=== PATIENT | female | born 1960 | race Caucasian/White ===

== ENCOUNTER → 2023-06-24 12:26 | Outpatient (REF) | payer MEDICARE, OTHER, SELFPAY ==
[2023-06-24 16:05] LABS: % Basophils 0.6 % (0-2); % Eosinophils 2.2 % (0-6); % Immature Granulocytes 0.3 % (0-0.5); % Lymphocytes 24.9 % (20.5-51.1); % Monocytes 9.3 % (1.7-9.3); % Neutrophils 62.7 % (42.2-75.2); Absolute Basophils 0.1 10^3/uL (0-0.2); Absolute Eosinophils 0.2 10^3/uL (0-0.7); Absolute Lymphocytes 2.4 10^3/uL (1.2-3.4); Absolute Monocytes 0.9 10^3/uL (0.1-0.6); Hematocrit 36.9 % (37.0-47.0); Hemoglobin 12.3 g/dL (12.0-16.0); Mean Corp Hgb Conc. 33.3 g/dL (33.0-37.0); Mean Corpuscular Hgb 25.9 pg (27.0-31.0); Mean Corpuscular Volume 77.7 fL (81.0-99.0); Mean Platelet Volume 9.6 fL (7.4-10.4); Nucleated Red Blood Cells % 0 %; Platelet Count 307 10^3/uL (130-400); Red Blood Cell Count 4.75 10^6/uL (4.20-5.40); Red Cell Dist. Width 13.6 % (11.5-14.5); White Blood Cell Count 9.6 10^3/uL (4.8-10.8)
[2023-06-24 16:21] LABS: ALT (SGPT) 23 U/L (0-35); AST (SGOT) 26 U/L (14-36); Albumin 4.6 g/dl (3.5-5.0); Alkaline Phosphatase 74 U/L (38-126); Blood Urea Nitrogen 14 mg/dl (7-17); Calcium 9.9 mg/dl (8.4-10.2); Carbon Dioxide 25 mmol/L (22-30); Chloride 102 mmol/L (98-107); Glucose 242 mg/dl (70-99); HDL Cholesterol 36 mg/dl; Iron 62 ug/dl (37-170); LDL Cholesterol, Calculated 62 mg/dl; Potassium 3.9 mmol/L (3.5-5.1); Sodium 135 mmol/L (135-145); Total Bilirubin 0.5 mg/dl (0.2-1.3); Total Cholesterol 141 mg/dl (50-199); Total Protein 6.9 g/dl (6.3-8.2); Triglyceride 215 mg/dl (10-149); Very Low Density Lipoprotein 43 mg/dl (0-30); eGFR > 60.00
[2023-06-24 16:28] LABS: Urine Albumin Negative (Neg - Trace); Urine Bilirubin Negative (Negative); Urine Character Clear (Clear); Urine Color Yellow; Urine Glucose 2+ (Negative); Urine Ketone Negative (Negative); Urine Leukocyte Trace (Negative); Urine Nitrite Negative (Negative); Urine Occult Blood Negative (Negative); Urine Specific Gravity 1.015 (<1.030); Urine Urobilinogen Negative (Neg - 1+)
[2023-06-24 16:31] LABS: Percent Saturation 17 % (20-50); Total Iron Binding Capacity 355 ug/dl (265-497)
[2023-06-24 16:38] LABS: Urine Red Blood Cell None Seen /HPF (0-2)
[2023-06-24 16:58] LABS: TSH Reflex To Free T4 1.32 uIU/ml (0.47-4.68)
[2023-06-24 17:01] LABS: Ferritin 31.3 ng/ml (11.1-264.0)
== END ==
LOC: HWLAB 12:26
PROVIDERS: ATTENDING PHYSICIAN Internal Medicine
DX: I10 Essential (primary) hypertension (principal); E11.9 Type 2 diabetes mellitus without complications; Z79.4 Long term (current) use of insulin; Z13.820 Encounter for screening for osteoporosis; D50.8 Other iron deficiency anemias; R35.0 Frequency of micturition; Z00.00 Encounter for general adult medical examination without abnormal findings; E11.65 Type 2 diabetes mellitus with hyperglycemia
CPT/HCPCS: 36415; 80053; 80061; 81003; 81015; 82728; 83036; 83540; 83550; 84443; 85025

== ENCOUNTER → 2023-07-02 14:47 | Outpatient (REF) | payer MEDICARE, OTHER, SELFPAY | LOC: HWRAD 14:47 | PROVIDERS: ATTENDING PHYSICIAN Internal Medicine | DX: Z12.31 Encounter for screening mammogram for malignant neoplasm of breast (principal); Z13.820 Encounter for screening for osteoporosis; Z78.0 Asymptomatic menopausal state | CPT/HCPCS: 77063; 77067; 77080 ==

== ENCOUNTER → 2023-08-12 11:49 | Outpatient (REF) | payer MEDICARE, OTHER, SELFPAY | LOC: HWLAB 11:49 | PROVIDERS: ATTENDING PHYSICIAN Internal Medicine Gastroenterology; FAMILY PHYSICIAN Internal Medicine | DX: K52.9 Noninfective gastroenteritis and colitis, unspecified (principal) | CPT/HCPCS: 83993; 87045; 87046; 87324; 87328; 87329; 87427; 87449; 89055 ==

== ENCOUNTER → 2023-08-27 12:49 | Outpatient (REF) | payer MEDICARE, OTHER, SELFPAY | LOC: HWLAB 12:49 | PROVIDERS: ATTENDING PHYSICIAN Internal Medicine Gastroenterology; FAMILY PHYSICIAN Internal Medicine | DX: K52.9 Noninfective gastroenteritis and colitis, unspecified (principal) | CPT/HCPCS: 87045; 87046; 87324; 87328; 87329; 87427; 87449; 89055 ==

== ENCOUNTER → 2023-09-05 12:41 | Outpatient (REF) | payer MEDICARE, OTHER, SELFPAY | LOC: HWRAD 12:41 | PROVIDERS: ATTENDING PHYSICIAN Physician Assistant; FAMILY PHYSICIAN Internal Medicine | DX: R10.30 Lower abdominal pain, unspecified (principal) | CPT/HCPCS: 74177; Q9967 ==

== ENCOUNTER → 2023-09-24 13:21 | Outpatient (REF) | payer MEDICARE, OTHER, SELFPAY ==
[2023-09-25 09:26] LABS: Glycohemoglobin (HgbA1c) 7.9 % (4.0-5.6)
== END ==
LOC: HWLAB 13:21
PROVIDERS: ATTENDING PHYSICIAN Internal Medicine
DX: E11.9 Type 2 diabetes mellitus without complications (principal)
CPT/HCPCS: 36415; 83036

== ENCOUNTER 2024-01-02 05:34 | Observation (INO) | payer MEDICARE, OTHER, SELFPAY ==
[2024-01-02] VITALS (10 sets, daily range): BP systolic 125–220; BP diastolic 48–92; BMI 26.8; BMI 26.4
[2024-01-02 01:39] LABS: % Basophils 0.8 % (0-2); % Eosinophils 1.5 % (0-6); % Immature Granulocytes 0.4 % (0-0.5); % Lymphocytes 31.6 % (20.5-51.1); % Monocytes 7.2 % (1.7-9.3); % Neutrophils 58.5 % (42.2-75.2); Absolute Basophils 0.1 10^3/uL (0-0.2); Absolute Eosinophils 0.2 10^3/uL (0-0.7); Absolute Lymphocytes 3.3 10^3/uL (1.2-3.4); Absolute Monocytes 0.8 10^3/uL (0.1-0.6); Absolute Neutrophils 6.1 10^3/uL (1.4-6.5); Hematocrit 35.4 % (37.0-47.0); Hemoglobin 12.5 g/dL (12.0-16.0); Mean Corp Hgb Conc. 35.3 g/dL (33.0-37.0); Mean Corpuscular Hgb 27.2 pg (27.0-31.0); Mean Corpuscular Volume 77.1 fL (81.0-99.0); Mean Platelet Volume 9.2 fL (7.4-10.4); Nucleated Red Blood Cells % 0 %; Platelet Count 263 10^3/uL (130-400); Red Blood Cell Count 4.59 10^6/uL (4.20-5.40); Red Cell Dist. Width 12.6 % (11.5-14.5); Urine Albumin Trace (Neg - Trace); Urine Bilirubin Negative (Negative); Urine Character Slightly Cloudy (Clear); Urine Color Yellow; Urine Glucose Negative (Negative); Urine Ketone Negative (Negative); Urine Leukocyte Trace (Negative); Urine Nitrite Negative (Negative); Urine Occult Blood Negative (Negative); Urine Urobilinogen Negative (Neg - 1+); White Blood Cell Count 10.5 10^3/uL (4.8-10.8)
[2024-01-02 01:51] LABS: Amphetamines Negative (Negative); Barbiturates Negative (Negative); Benzodiazepines Positive (Negative); Buprenorphine Negative (Negative); Cocaine Negative (Negative); Marijuana Negative (Negative); Methadone Negative (Negative); Methamphetamines Negative (Negative); Opiates Negative (Negative); Phencyclidine Negative (Negative); Tricyclic Antidepressants Negative (Negative)
[2024-01-02 01:57] LABS: ALT (SGPT) 36 U/L (0-35); AST (SGOT) 23 U/L (14-36); Albumin 4.5 g/dl (3.5-5.0); Alkaline Phosphatase 80 U/L (38-126); Blood Urea Nitrogen 16 mg/dl (7-17); Calcium 9.5 mg/dl (8.4-10.2); Carbon Dioxide 18 mmol/L (22-30); Chloride 100 mmol/L (98-107); Glucose 228 mg/dl (70-99); Potassium 3.9 mmol/L (3.5-5.1); Sodium 138 mmol/L (135-145); Total Bilirubin 0.4 mg/dl (0.2-1.3); Total Protein 6.7 g/dl (6.3-8.2); Urine Amorphous Seen; Urine Squamous Cell >30 /LPF (Few); eGFR > 60.00
[2024-01-02 01:58] LABS: Urine Hyaline Cast >15 /LPF (0-2); Urine Mucus Many; Urine Red Blood Cell 0-2 /HPF (0-2)
[2024-01-02 01:59] LABS: Urine Bacteria Moderate (Negative)
[2024-01-02 02:53] LABS: Fentanyl, Urine Negative (Negative)
[2024-01-02] MEDS: NSS 1000 IV (02:56)
[2024-01-02 03:02] LABS: Alcohol None Detected
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
[2024-01-02 07:08] LABS: COVID-19 Antigen Negative (Negative)
[2024-01-02 09:13] LABS: Glucose - Point of Care 234 mg/dl (70-99)
[2024-01-02] MEDS: LOPRESSOR 50 MG PO ×2 (09:19→21:11)
[2024-01-02] MEDS: PROCARDIA XL (EXTENDED RELEASE) 30 MG PO ×2 (09:20→21:11)
[2024-01-02] MEDS: PROTONIX PO (09:20)
[2024-01-02] MEDS: B COMPLEX w/VITAMIN C 1 CAPLET PO (09:20)
[2024-01-02] MEDS: GLUCOPHAGE XR EXTENDED RELEASE 500 MG PO ×2 (09:21→18:14)
[2024-01-02] MEDS: ASPIR LOW (ENTERIC COATED) 81 MG PO (09:21)
[2024-01-02] MEDS: BENICAR 40 MG PO (09:21)
[2024-01-02] MEDS: ZOLOFT 100 MG PO (09:21)
[2024-01-02] MEDS: LANTUS 0.15 UNITS SC (09:28)
[2024-01-02] MEDS: NOVOLOG FLEXPEN 10 UNITS SC ×3 (09:28→17:46)
[2024-01-02] MEDS: NOVOLOG FLEXPEN-MODERATE RESISTANCE 13 UNITS SC (09:28)
[2024-01-02 13:15] LABS: Urine Albumin Negative (Neg - Trace); Urine Bilirubin Negative (Negative); Urine Character Clear (Clear); Urine Color Straw; Urine Glucose 3+ (Negative); Urine Ketone Negative (Negative); Urine Leukocyte Negative (Negative); Urine Nitrite Negative (Negative); Urine Occult Blood Negative (Negative); Urine Urobilinogen Negative (Neg - 1+)
--- NOTE | 2024-01-02 13:59 | W.PN.HOSP.TC ---
Today's Communication/Plan
-
Monitor vital signs see plan
Check MRI brain
Continue aspirin
Monitor urine culture
Continue with BP meds
non billable note
Assessment / Plan
Assessment / Plan
General: No Apparent Distress, Comfortable and Conversant
HEENT: NormoCephalic, Anicteric, Moist mucous membranes and Atraumatic
Respiratory: Clear
Cardiac: S1/S2 and Bradycardia
GI: Non Tender, Non Distended and Normal Bowel Sounds
Musculoskeletal:No Edema
Neuro: AO x 3
Hematologic/Lymphatic: No Lymphadenopathy
Psych: Calm
AMS -patient found confused by EMS.
CT of the head is negative.
she has hx of CVA; on baby aspirin.
check MRI brain
- BP control as below
- neurochecks
UDS + for opioids and benzos; patient refuse using
per patient her spouse recently and she she has been under a lot of stress and has been sleeping. The symptoms could also be likely due to lack of sleep.
hx of Hypertension
- olmesartan 20 bid
- nifedipine 30 bid
- metrol 50 bid
- continue statin
increase Urinary frequency - frequency for about 3 weeks but denies other symptoms. U/A appears contaminated
awaiting urine cx; repat Ua
- repeat u/a
monitor
DM II
- lantus 20 am, 30 hs at home, will continue at 15 and 20 here
- aspart sliding scale
- aspart 10 tidac
- continue metformin 500 bid
Hyperlipidemia
Spinal stenosis
JAYCE
History of ulcerative colitis
Diabetic neuropathy
DVT PPX - lovenox sq
Code Status - Full Code
Anticipated Discharge: Within 24 hours
Subjective/Interval History
-
Date of Service: January 02, 2024
denies pain
Objective Data
-
Vital Signs:
Vital Signs
Temp Pulse Resp BP Pulse Ox
99.1 F 95 20 151/65 97
01/02/24 00:50 01/02/24 12:08 01/02/24 12:08 01/02/24 12:08 01/02/24 07:30
[2024-01-02 14:37] LABS: Glucose - Point of Care 212 mg/dl (70-99)
[2024-01-02 15:08] LABS: Glucose - Point of Care 283 mg/dl (70-99)
[2024-01-02] MEDS: NOVOLOG FLEXPEN-MODERATE RESISTANCE 5 UNITS SC (15:10)
[2024-01-02] MEDS: TYLENOL 650 MG PO (15:18)
[2024-01-02 17:46] LABS: Glucose - Point of Care 192 mg/dl (70-99)
[2024-01-02] MEDS: NOVOLOG FLEXPEN-MODERATE RESISTANCE 1 UNITS SC (17:46)
[2024-01-02] MEDS: LOVENOX 40 MG SC (18:14)
[2024-01-02] MEDS: APRESOLINE 10 MG IV (18:23)
[2024-01-02] MEDS: LIPITOR 80 MG PO (21:11)
[2024-01-02] MEDS: FEOSOL 325 MG PO (21:11)
[2024-01-02] MEDS: LANTUS 0.2 UNITS SC (21:14)
[2024-01-02 21:17] LABS: Glucose - Point of Care 148 mg/dl (70-99)
[2024-01-03 03:00] VITALS: BP 165/67
[2024-01-03 07:35] VITALS: BP 165/88
[2024-01-03 07:58] LABS: Glucose - Point of Care 163 mg/dl (70-99)
[2024-01-03] MEDS: LANTUS 0.15 UNITS SC (09:49)
[2024-01-03] MEDS: B COMPLEX w/VITAMIN C 1 CAPLET PO (09:50)
[2024-01-03] MEDS: BENICAR 40 MG PO (09:50)
[2024-01-03] MEDS: PROCARDIA XL (EXTENDED RELEASE) 30 MG PO ×2 (09:50→19:30)
[2024-01-03] MEDS: ZOLOFT 100 MG PO (09:50)
[2024-01-03] MEDS: GLUCOPHAGE XR EXTENDED RELEASE 500 MG PO (09:50)
[2024-01-03] MEDS: PROTONIX 40 MG PO (09:51)
[2024-01-03] MEDS: LOPRESSOR PO (09:51)
[2024-01-03] MEDS: ASPIR LOW (ENTERIC COATED) 81 MG PO (09:51)
[2024-01-03 09:59] LABS: % Basophils 0.8 % (0-2); % Eosinophils 1.5 % (0-6); % Immature Granulocytes 0.3 % (0-0.5); % Lymphocytes 36.2 % (20.5-51.1); % Monocytes 6.9 % (1.7-9.3); % Neutrophils 54.3 % (42.2-75.2); Absolute Basophils 0.1 10^3/uL (0-0.2); Absolute Eosinophils 0.2 10^3/uL (0-0.7); Absolute Lymphocytes 3.5 10^3/uL (1.2-3.4); Absolute Monocytes 0.7 10^3/uL (0.1-0.6); Absolute Neutrophils 5.3 10^3/uL (1.4-6.5); Hematocrit 36.3 % (37.0-47.0); Hemoglobin 12.7 g/dL (12.0-16.0); Mean Corpuscular Volume 80.1 fL (81.0-99.0); Mean Platelet Volume 9.6 fL (7.4-10.4); Nucleated Red Blood Cells % 0 %; Platelet Count 265 10^3/uL (130-400); Red Blood Cell Count 4.53 10^6/uL (4.20-5.40); Red Cell Dist. Width 12.5 % (11.5-14.5); White Blood Cell Count 9.7 10^3/uL (4.8-10.8)
[2024-01-03] MEDS: NOVOLOG FLEXPEN-MODERATE RESISTANCE 1 UNITS SC ×2 (10:29→17:02)
[2024-01-03] MEDS: NOVOLOG FLEXPEN 10 UNITS SC ×2 (10:29→17:02)
[2024-01-03] MEDS: BENTYL 10 MG PO (10:29)
[2024-01-03 10:36] LABS: ALT (SGPT) 36 U/L (0-35); AST (SGOT) 30 U/L (14-36); Albumin 4.3 g/dl (3.5-5.0); Alkaline Phosphatase 68 U/L (38-126); Blood Urea Nitrogen 12 mg/dl (7-17); Carbon Dioxide 24 mmol/L (22-30); Chloride 104 mmol/L (98-107); Estimated Creatinine Clearance 81 ml/min; Glucose 206 mg/dl (70-99); Potassium 3.9 mmol/L (3.5-5.1); Sodium 142 mmol/L (135-145); Total Bilirubin 0.5 mg/dl (0.2-1.3); Total Protein 6.4 g/dl (6.3-8.2); eGFR > 60.00
--- NOTE | 2024-01-03 12:43 | W.PN.HOSP.TC ---
Today's Communication/Plan
-
Monitor vitals
See plan
Per my conversation with daughter, it appears the patient has not been taking all her medications and has been forgetful at times
CTA and MRI pending
Continue with neurochecks
Continue aspirin; already on statin
check A1c
cw insulin
hold metformin
Assessment / Plan
Assessment / Plan
General: No Apparent Distress, Comfortable and Conversant
HEENT: NormoCephalic, Anicteric, Moist mucous membranes and Atraumatic
Respiratory: Clear
Cardiac: S1/S2 and Bradycardia
GI: Non Tender, Non Distended and Normal Bowel Sounds
Musculoskeletal:No Edema
Neuro: AO x 3
Psych: Calm
AMS -patient found confused by EMS.
CT of the head is negative.
she has hx of CVA; on baby aspirin.
check MRI brain
- BP control as below
- neurochecks
UDS + for opioids and benzos; patient refuse using
per patient her spouse recently and she she has been under a lot of stress and has been sleeping. The symptoms could also be likely due to lack of sleep.
spoke with daughter 01/02; per daughter patient has not been taking all her medications and has been missing doses. She has been forgetting lately. Has not seen neurologist outpatient. CTA head and neck and MRI pending. Will consult neurology
pending these images.
hx of Hypertension
- olmesartan 20 bid
- nifedipine 30 bid
- metrol 50 bid
- continue statin
increase Urinary frequency - frequency for about 3 weeks but denies other symptoms. U/A appears contaminated
awaiting urine cx; repeat Ua neg
- repeat u/a
monitor
DM II
- lantus 20 am, 30 hs at home, will continue at 15 and 20 here
- aspart sliding scale
- aspart 10 tidac
-Hold metformin
Hyperlipidemia
Spinal stenosis
JAYCE
History of ulcerative colitis
Diabetic neuropathy
DVT PPX - lovenox sq
Code Status - Full Code
I spent a total of 52 minutes with the patient or on the floor. More than 50% of this time involved counseling and coordination of care.
Anticipated Discharge: 24 - 48 hours
Subjective/Interval History
-
Date of Service: January 03, 2024
denies pain
Objective Data
-
Labs:
Laboratory Results
01/03/24
08:59
WBC 9.7
Hgb 12.7
Hct 36.3 L
Plt Count 265
Sodium 142
Potassium 3.9
Chloride 104
Carbon Dioxide 24
BUN 12
Creatinine 0.6
Glucose 206 H
Calcium 10.0
Total Bilirubin 0.5
AST 30
ALT 36 H
Alkaline Phosphatase 68
Vital Signs:
Vital Signs
Temp Pulse Resp BP Pulse Ox
98.7 F 55 18 165/88 95
01/03/24 07:35 01/03/24 09:50 01/03/24 07:35 01/03/24 09:50 01/03/24 09:50
I&O
01/02/24 01/03/24 01/04/24
06:59 06:59 06:59
Intake Total 400 / 400
Balance 400 / 400
--- NOTE | 2024-01-03 13:40 | PTCARENOTE ---
Pt is still in MRI for BS check and Novolog admin
[2024-01-03 15:10] VITALS: BP 157/75
[2024-01-03 16:45] LABS: Glucose - Point of Care 182 mg/dl (70-99)
[2024-01-03] MEDS: NOVOLOG FLEXPEN-MODERATE RESISTANCE SC ×2 (16:57→17:04)
[2024-01-03] MEDS: NOVOLOG FLEXPEN SC ×2 (16:57→17:04)
[2024-01-03] MEDS: LOVENOX 40 MG SC (17:05)
[2024-01-03] MEDS: LOPRESSOR 50 MG PO (19:30)
[2024-01-03] MEDS: APRESOLINE 10 MG IV (19:30)
[2024-01-03 20:45] VITALS: BP 185/72
[2024-01-03] MEDS: LANTUS 0.2 UNITS SC (21:13)
[2024-01-03] MEDS: FEOSOL 325 MG PO (21:13)
[2024-01-03] MEDS: LIPITOR 80 MG PO (21:13)
[2024-01-03 21:24] LABS: Glucose - Point of Care 170 mg/dl (70-99)
[2024-01-03 23:20] VITALS: BP 141/56
[2024-01-03] MEDS: MELATONIN 5 MG PO (23:50)
[2024-01-04 03:29] VITALS: BP 172/62
[2024-01-04 07:17] VITALS: BP 169/61
[2024-01-04 07:18] LABS: Glucose - Point of Care 152 mg/dl (70-99)
[2024-01-04] MEDS: NOVOLOG FLEXPEN-MODERATE RESISTANCE 1 UNITS SC (07:53)
[2024-01-04] MEDS: B COMPLEX w/VITAMIN C 1 CAPLET PO (07:54)
[2024-01-04] MEDS: PROCARDIA XL (EXTENDED RELEASE) 30 MG PO (07:54)
[2024-01-04] MEDS: BENICAR 40 MG PO (07:54)
[2024-01-04] MEDS: LANTUS 0.15 UNITS SC (07:54)
[2024-01-04] MEDS: PROTONIX 40 MG PO (07:54)
[2024-01-04] MEDS: NOVOLOG FLEXPEN 10 UNITS SC (07:54)
[2024-01-04] MEDS: ASPIR LOW (ENTERIC COATED) 81 MG PO (07:54)
[2024-01-04] MEDS: LOPRESSOR 50 MG PO (07:54)
[2024-01-04] MEDS: ZOLOFT 100 MG PO (07:55)
[2024-01-04] MEDS: BENTYL 10 MG PO (07:55)
[2024-01-04 09:10] LABS: % Basophils 0.8 % (0-2); % Eosinophils 1.8 % (0-6); % Immature Granulocytes 0.4 % (0-0.5); % Lymphocytes 35.7 % (20.5-51.1); % Monocytes 6.3 % (1.7-9.3); Absolute Basophils 0.1 10^3/uL (0-0.2); Absolute Eosinophils 0.2 10^3/uL (0-0.7); Absolute Lymphocytes 3.7 10^3/uL (1.2-3.4); Absolute Monocytes 0.7 10^3/uL (0.1-0.6); Absolute Neutrophils 5.8 10^3/uL (1.4-6.5); Hematocrit 37.3 % (37.0-47.0); Mean Corp Hgb Conc. 34.9 g/dL (33.0-37.0); Mean Corpuscular Volume 80.2 fL (81.0-99.0); Mean Platelet Volume 9.2 fL (7.4-10.4); Nucleated Red Blood Cells % 0 %; Platelet Count 284 10^3/uL (130-400); Red Blood Cell Count 4.65 10^6/uL (4.20-5.40); Red Cell Dist. Width 12.4 % (11.5-14.5); White Blood Cell Count 10.5 10^3/uL (4.8-10.8)
[2024-01-04 09:28] LABS: ALT (SGPT) 33 U/L (0-35); AST (SGOT) 28 U/L (14-36); Albumin 4.3 g/dl (3.5-5.0); Alkaline Phosphatase 60 U/L (38-126); Blood Urea Nitrogen 14 mg/dl (7-17); Calcium 9.9 mg/dl (8.4-10.2); Carbon Dioxide 19 mmol/L (22-30); Chloride 105 mmol/L (98-107); Estimated Creatinine Clearance 61 ml/min; Glucose 240 mg/dl (70-99); Potassium 3.9 mmol/L (3.5-5.1); Sodium 143 mmol/L (135-145); Total Bilirubin 0.5 mg/dl (0.2-1.3); Total Protein 6.5 g/dl (6.3-8.2); eGFR > 60.00
--- NOTE | 2024-01-04 09:35 | CM ---
Addendum entered by Kathy Gutierrez 01/04/24 12:00:
Plan: discharge to home today; family will provide transpot
Addendum entered by Kathy Gutierrez 01/04/24 09:43:
MARQUES form explained; refused to sign @ 0930
Original Note:
Met with patient at bedside; initial assessment completed
Pharmacy verified and updated on chart: [facility] @ [address] [place] [address]
Patient reported that her 2 months ago; lives alone in a one floor home; no steps; bath has stall shower and shower chair
PLOF: reports she is independent with ambulation and ADLs; retired; drives
DME: none
SNF/Home Health utilization history: NONE
NO Medication coverage
If family unable to transport home, she will call for an [facility]
Plan: discharge to home when stable; no needs anticipated
--- NOTE | 2024-01-04 10:28 | W.PN.HOSP.TC ---
Addendum entered and electronically signed by Zion Amin MD 01/04/24 10:43:
Daughter called back, updated
Original Note:
Today's Communication/Plan
-
monitor vitals
see plan
Discussed the importance of compliance with patient, she should follow-up with neurology outpatient
Called daughter, left voicemail
Discharge today
Time of discharge 39 minutes
Assessment / Plan
Assessment / Plan
General: No Apparent Distress, Comfortable and Conversant
HEENT: NormoCephalic, Anicteric, Moist mucous membranes and Atraumatic
Respiratory: Clear
Cardiac: S1/S2 and Bradycardia
GI: Non Tender, Non Distended and Normal Bowel Sounds
Musculoskeletal:No Edema
Neuro: AO x 3
Psych: Calm
AMS -patient found confused by EMS.
CT of the head is negative.
she has hx of CVA; on baby aspirin.
CTA with Atherosclerotic calcifications of the bilateral cavernous internal carotid arteries (ICAs) segments with resultant multifocal mild stenosis.
MRI brain with old CVA and brain atrophy. no new infarct. spoke with patient regarding medication compliance. Advised patient to follow-up with neurology outpatient.
- BP control as below
- neurochecks
UDS + for opioids and benzos; patient refuse using
per patient her spouse recently and she she has been under a lot of stress and has been sleeping. The symptoms could also be likely due to lack of sleep.
spoke with daughter 01/02; per daughter patient has not been taking all her medications and has been missing doses. She has been forgetting lately. has seen neurology before.
hx of Hypertension
- olmesartan 20 bid
- nifedipine
- metrol 50 bid
- continue statin
increase Urinary frequency - frequency for about 3 weeks but denies other symptoms. U/A appears contaminated
monitor
DM II
- lantus 20 am, 30 hs at home, will continue at 15 and 20 here
- aspart sliding scale
- aspart 10 tidac
-Hold metformin
Hyperlipidemia
Spinal stenosis
JAYCE
History of ulcerative colitis
Diabetic neuropathy
DVT PPX - lovenox sq
Code Status - Full Code
Anticipated Discharge: Today
Subjective/Interval History
-
Date of Service: January 04, 2024
denies pain
Objective Data
-
Labs:
Laboratory Results
01/04/24
08:35
WBC 10.5
Hgb 13.0
Hct 37.3
Plt Count 284
Sodium 143
Potassium 3.9
Chloride 105
Carbon Dioxide 19 L
BUN 14
Creatinine 0.8
Glucose 240 H
Calcium 9.9
Total Bilirubin 0.5
AST 28
ALT 33
Alkaline Phosphatase 60
Vital Signs:
Vital Signs
Temp Pulse Resp BP Pulse Ox
98.6 F 54 20 169/61 94
01/04/24 07:17 01/04/24 07:54 01/04/24 07:17 01/04/24 07:54 01/04/24 09:13
I&O
01/03/24 01/04/24 01/05/24
06:59 06:59 06:59
Intake Total 400 / 400 1440 / 1440
Balance 400 / 400 1440 / 1440
--- NOTE | 2024-01-04 10:43 | W.DCSUMMARY ---
Discharge Summary
Discharge Data
Date of Admission: 01/02/24
Date of Discharge: 01/04/24
-
Pending Results: No
Hospital Course
63-year-old female with past medical history of stroke, hypertension, diabetes mellitus, hyperlipidemia, spinal stenosis, JAYCE, cellulitis, diabetic neuropathy came to the hospital with change in mental status. Patient UDS was positive for opioids
and benzodiazepine however patient refused consuming any of these. Given her previous history of CVA CT scan and MRI was done. CTA was consistent with atherosclerotic calcification of the bilateral internal carotid arteries with mild stenosis.
MRI did show old CVA and brain atrophy which was consistent with possibility of patient developing dementia. I felt that patient symptoms were likely secondary to hypertensive encephalopathy and I instructed patient and his daughter that she will
need close follow-up with all her physicians. Once patient symptoms continue to improve, she was then discharged home with instructions to follow-up with all her physicians outpatient.
Discharge Plan
-
Patient Disposition: Home (Routine Discharge)
Discharge Diagnosis/Procedures: confusion appears 2/2 hypertensive encephalopathy
Old CVA
Suspect developing dementia
Diet: As tolerated
Activity: As tolerated
Driving Restrictions: As prior to admission
Bathing Restrictions: None
Activity Restrictions/Additional Instructions:
Please check your blood pressure twice daily and write those numbers down. Discuss with your primary care provider next week for further medication titration. Please also make sure your sugars are controlled.
Referrals:
Jenelle Wagoner MD [Active] - in one to two weeks
Shannan Vallejo DO [Family Provider] - in less than 1 week
Prescriptions:
Continued
metoprolol tartrate 50 MG tablet
50 mg PO BID
albuterol sulfate 1 PUFF HFA aerosol inhaler
2 puff inhalation R [id number] PRN (Reason: sob)
metformin 500 MG tablet extended release 24 hr
500 mg PO BID@0800,1700
icosapent ethyl [Vascepa] 1 GM capsule
1 gm PO BID
omeprazole 20 mg Capsule,Delayed Release(Dr/Ec)
20 mg PO DAILY
sertraline [Zoloft] 50 mg Tablet
100 mg PO DAILY
dicyclomine 10 mg Capsule
10 mg PO DAILY
mesalamine 1.2 gram Tablet,Delayed Release (Dr/Ec)
2.4 g PO BID
olmesartan 20 mg Tablet
40 mg PO DAILY Qty: 60 0RF
atorvastatin [Lipitor] 80 mg Tablet
80 mg PO HS
aspirin 81 mg Tablet,Delayed Release (Dr/Ec)
81 mg PO DAILY
insulin aspart U-100 [Novolog FlexPen U-100 Insulin] 100 unit/mL (3 mL) Insulin Pen
15 unit SC AC Qty: 5 0RF
ferrous sulfate [FeroSul] 325 mg (65 mg iron) Tablet
325 mg PO HS Qty: 30 1RF
cyanocobalamin (vitamin B-12) 1,000 mcg Tablet
1,000 mcg PO DAILY
nifedipine 90 mg Tablet Extended Release 24hr
90 mg PO DAILY
Trulicity 1.5 mg/0.5 mL Pen Injector
1.5 mg SC SA
Changed
insulin glargine [Lantus Solostar U-100 Insulin] 100 unit/mL (3 mL) Insulin Pen
20 unit SC HS Qty: 5 0RF
Rx Instructions:
E11.65
Discharge Orders:
Discharge Patient (As Directed); Ordered 01/04/24
Ordered By: Zion Amin
Discharge Date and Time
Discharge Date/Time: 01/04/24 14:42
Print Language: SWAZI
[2024-01-04 11:13] VITALS: BP 169/71
[2024-01-04 12:22] LABS: Glycohemoglobin (HgbA1c) 8.9 % (4.0-5.6)
== END 2024-01-04 14:42 | disposition home or self-care (01) ==
LOC: 4 EAST ACU 05:34
PROVIDERS: ADMITTING PHYSICIAN Internal Medicine; ATTENDING PHYSICIAN Internal Medicine; EMERGENCY PHYSICIAN Emergency Medicine; FAMILY PHYSICIAN Internal Medicine
DX: R41.0 Disorientation, unspecified (principal); R51.9 Headache, unspecified; I10 Essential (primary) hypertension; J45.909 Unspecified asthma, uncomplicated; E78.00 Pure hypercholesterolemia, unspecified; F13.90 Sedative, hypnotic, or anxiolytic use, unspecified, uncomplicated; F11.90 Opioid use, unspecified, uncomplicated; E11.40 Type 2 diabetes mellitus with diabetic neuropathy, unspecified; K51.90 Ulcerative colitis, unspecified, without complications; F41.9 Anxiety disorder, unspecified; I70.0 Atherosclerosis of aorta; G31.9 Degenerative disease of nervous system, unspecified; R00.1 Bradycardia, unspecified; I65.23 Occlusion and stenosis of bilateral carotid arteries; R35.0 Frequency of micturition; G47.33 Obstructive sleep apnea (adult) (pediatric); K21.9 Gastro-esophageal reflux disease without esophagitis; Z60.2 Problems related to living alone; Z86.73 Personal history of transient ischemic attack (TIA), and cerebral infarction without residual deficits; Z87.891 Personal history of nicotine dependence; Z79.82 Long term (current) use of aspirin; Z79.4 Long term (current) use of insulin; Z79.85 Long-term (current) use of injectable non-insulin antidiabetic drugs; Z79.84 Long term (current) use of oral hypoglycemic drugs; Z88.1 Allergy status to other antibiotic agents; Z88.2 Allergy status to sulfonamides; Z88.8 Allergy status to other drugs, medicaments and biological substances; Z91.148 Patient's other noncompliance with medication regimen for other reason; Z11.52 Encounter for screening for COVID-19
CPT/HCPCS: 70450; 70496; 70498; 70551; 80053; 80306; 80307; 81003; 81015; 82077; 82962; 83036; 85025; 87086; 87811; 93005; 96360; 99285; G0378; Q9967